=== PATIENT | male | born 1985 | race African-American/Black ===

== ENCOUNTER 2024-05-16 13:26 | Emergency (ER) | payer OTHER, MEDICAID, SELFPAY ==
[2024-05-16 13:27] VITALS: BP 127/88; PULSE 85; RESP 16; TEMP 36.6; O2SAT 95; BMI 21.8
--- NOTE | 2024-05-16 13:49 | EX.ED.UPPERE ---
HPI History of Present Illness HPI Narrative: 39-year-old male lacerated his left index finger at work today around 1 PM. Chief Complaint: Laceration Informant: patient Occured/Mechanism Mechanism/Context: Yes injury Onset/Context/Timing Onset: Today Context: Sudden Onset Timing: Continuous Current Severity: Mild Maximum Severity: Mild Narrative Narrative: 39-year-old male [id number] left index finger laceration at work today around 12:50 PM. Tetanus Immunization: Unknown Prior similar symptoms: No Recent Illness/Hospitalization: No PFSH PFSH Medical History no medical history no medical history Home Medications ?Medication ?Instructions ?Recorded ?Last Taken ?Type No Known/Unobtainable [No Known 08/24/13 Unknown History Home Medications] Allergy/AdvReac Type Severity Reaction Status Date / Time No Known Allergies Allergy Verified 05/16/24 13:29 Family History no significant family his no significant family history Surgical History no surgical history no surgical history Social History Smoking Status: Current every day smoker tobacco type: cigarettes ROS ROS ED ROS Narrative Denies recent illness. Constitutional Constitutional ED: Denies fever(s) Eyes Eyes: Denies blurry vision ENT ENT ED: Denies ear pain Cardiovascular Cardiovascular: Denies chest pain Respiratory/Chest Respiratory/Chest: Denies cough Gastrointestinal Gastrointestinal: Denies abdominal pain Genitourinary Genitourinary ED: Denies dysuria Musculoskeletal Musculoskeletal: Denies back pain Integumentary Denies abscess Neurologic Neurologic: Denies headache(s) Psychiatric Psychiatric: Denies anxiety Endocrine Endocrinology: Denies cold intolerance Hematologic/Lymphatic Hematologic/Lymphatic: Denies easy bleeding Allergic/Immunologic Allergic/Immunologic ED: Denies mouth swelling EXAM Physical Exam Narrative Exam Narrative: 39-year-old male no acute distress vital signs stable afebrile. H EENT exam unremarkable. Pierced tongue. Lungs clear. Heart regular rhythm. Abdomen soft nontender. Moving all 4 extremities. Neurovascularly intact. He has a dressing on his left index finger tells me is a laceration on the dorsal side along the PIP. Normal touch sensation and cap refill. Otherwise exam unremarkable. Const Vital Signs: 05/16/24 13:27 Temperature 97.9 F Temperature Source Oral Pulse Rate 85 Respiratory Rate 16 Blood Pressure 127/88 H Blood Pressure Mean 101 Pulse Ox 95 Oxygen Delivery Method Room Air Positive well nourished and well developed; Negative for obese, cachectic, contractures or unkempt General Appearance ED: well developed and NAD; Negative for unkempt, cachectic, contractures, cyanotic or diaphoretic Nutritional Appearance: Negative for cachectic or obese HEENT Reports moist mucous membranes normocephalic and atraumatic; Negative for trauma or tenderness Eyes PERRL and EOMs intact bilaterally General Eye ED: Negative for other Neck full ROM and supple General: Negative for tenderness Lymph Lymphatic: Negative for other Chest Wall inspection of chest normal and palpation of chest normal Chest: Negative for other Resp normal respiratory effort and clear to auscultation bilaterally Effort and Inspection: Negative for pain with movement Auscultation: Negative for rales, rhonchi or wheezes Cardio regular rate, regular rhythm, S1 normal heart sound, S2 normal heart sound and no murmurs GI non-tender, non-distended and no masses Back/Spine no CVA tenderness Extremity normal to inspection and full ROM Extremity Narrative: Laceration left index finger dorsal side along the PIP. Normal flexion extension. Normal touch sensation and cap refill. No foreign body noted or infection. Neuro oriented x3, CN's II-XII intact bilaterally, moves all extremities, no focal motor deficits and no sensory deficits noted Motor Exam: strength 5/5 throughout Psych mental status grossly normal Appearance: Negative for unkempt Mood & Affect: Negative for depressed, anxious or tearful Skin General Skin Exam: Negative for petechiae Lesions: no lesions Rashes: no rashes Trauma: laceration linear MDM MDM MDM Narrative Medical decision making narrative: 39-year-old male left index finger laceration at work. Worker's Comp. injury. Tetanus will be updated because he does not know his last tetanus. Anesthetic, clean, explore and repair. Left index finger flap laceration. Local anesthetic with plain lidocaine. Cleaned with Sylvia-Clara. Washed and irrigated with saline. Explored. No foreign body. Full range of motion. Normal sensation. Close using 3 simple erupted 4-0 Ethilon sutures. Proper hemostasis wound closure obtained. Patient was instructed on wound care and suture removal in 10 to 14 days. Tetanus was updated. Procedures Lacerations Left index finger laceration repair:: Length: 1 in Depth: Sub Q Shape: Flap Prep: Shmaritza-[place] Laceration repair: Irrigated, Lidocaine, Local and Skin sutures Number of Sutures/[place]: 3 Suture Information: Ethilon, Simple and 4-0 Comment: Left index finger laceration repair: Flap laceration on the dorsum of the left index finger over the PIP. Full flexion extension. No joint, nor tendon involvement. No foreign body. Local anesthetized lidocaine. Cleaned with Shur-Clens. Washed and irrigated with saline. Explored. Closed using 3 simple interrupted 4-0 Ethilon sutures. Proper hemostasis wound closure obtained. Patient tolerated procedure well. Was instructed on wound care. Discharge Plan Triage Chief Complaint: Laceration ED Provider: Branden Dominguez Dx/Rx/DC Orders Clinical Impression: Encounter related to worker's compensation claim, Finger laceration Prescriptions: No Action No Known Home Medications Primary Care Provider: Care Physician,No Primary Referrals: Corporate,Care [Group of Physicians] - 10-14 Days suture removal Care Physician,No Primary [Primary Care Provider] - Activity Restrictions/Additional Instructions: Keep your finger clean, dry and covered at work. Do not soak in any liquids. You may leave our dressing on for 2 to 3 days. Then change it. Clean daily with soap and water. Dry thoroughly. Apply antibiotic ointment. Watch for any signs of infection. Stitches out in 10 to 14 days. Return if any pus, fever, red streaks or swelling. Your tetanus shot was updated and is good for 10 years. Print Language: Czech Disposition Disposition: Home, Self Care
[2024-05-16] MEDS: Lidocaine 1% (20 ml mdv) 20 ML Vial 10 ML INFILT (14:10)
[2024-05-16] MEDS: Diphth,Pertuss(Acell),Tet Vac 0.5 ML Vial IM (15:34)
[2024-05-16 15:37] VITALS: BP 132/90; PULSE 78; RESP 16; TEMP 36.8; O2SAT 100
== END 2024-05-16 15:57 | disposition home or self-care (01) ==
PROVIDERS: Emergency Provider Emergency Medicine; Visit Provider Emergency Medicine
DX: S61.211A Laceration without foreign body of left index finger without damage to nail, initial encounter (principal); F17.210 Nicotine dependence, cigarettes, uncomplicated; Z23 Encounter for immunization; W26.8XXA Contact with other sharp object(s), not elsewhere classified, initial encounter; Y99.0 Civilian activity done for income or pay; Y92.89 Other specified places as the place of occurrence of the external cause
CPT/HCPCS: 12001; 90471; 90715; 99284

== ENCOUNTER 2024-11-04 13:42 | Emergency (ER) | payer MEDICAID, SELFPAY ==
[2024-11-04 13:43] VITALS: BP 140/83; PULSE 89; RESP 18; TEMP 37.2; O2SAT 100; BMI 21.1
--- NOTE | 2024-11-04 14:05 | EX.ED.VIS.HA ---
HPI <Dia Dickinson RN - Last Filed: 11/04/24 14:27> History of Present Illness Chief Complaint: Headache Informant: patient Onset/Context/Timing Onset: Weeks (1.5) Context: Sudden Timing: Continuous Quality -Headache: Positive for Sharp and Other (Aching); Negative for Similar Prior Headaches Location: Generalized headache Current Severity: 6/10 Maximum Severity: 10/10 Worsened by: Nothing Relieved by: Nothing Associated Symptoms/Injury Associated Symptoms: Positive for Nausea, Vomiting, Photophobia and - (Difficulty focusing); Negative for Fever, Sore Throat, Sinus Pressure, Numbness, Tingling or Preceding Aura Narrative Narrative: Patient is a 39-year-old male with no past medical history who presents to the ER for a headache that began 1-1/2 weeks ago. He was seen at urgent care on Wednesday and advised to come to the ED. Patient reports he developed a sharp pain in the left parietal area of his head that radiated to the top of his head and also had burning. After that he felt as if the left side of his face was draining and that something was turning in his head. Since then he has had just a generalized aching headache with pressure behind his eyes on 10/30/2024. He also reports intermittent photosensitivity, intermittent dizziness and lightheadedness, intermittent shortness of breath. He reports he did vomit on 10/26 10/31 and 10/31/2024. He was nauseated 2 days ago. He has taken Tylenol last week without relief. He denies one-sided weakness. He denies a prior history of migraines. He had a brother who does have a history of migraines. He does admit to having allergies to pollen and dust. He also reports decreased p.o. intake. He has a prior history of drug abuse. He did use a THC gummy on 10/29/2024. He does vape daily. He does not take any daily medications. However he reports he had taken estradiol and spironolactone last year and is supposed to restart this next month. He denies fever, chills, nasal congestion/drainage, sore throat, chest pain. Denies numbness tingling. Prior similar symptoms: No Recent Illness/Hospitalization: No PFSH <Dia Dickinson RN - Last Filed: 11/04/24 14:27> [facility] Medical History no medical history Home Medications ?Medication ?Instructions ?Recorded ?Last Taken ?Type No Known/Unobtainable [No Known 08/24/13 Unknown History Home Medications] Allergy/AdvReac Type Severity Reaction Status Date / Time No Known Allergies Allergy Verified 11/04/24 13:43 Family History no significant family his Surgical History no surgical history Social History Smoking Status: Current every day smoker tobacco type: e-cigarettes ROS <Dia Dickinson RN - Last Filed: 11/04/24 14:27> ROS ED ROS Narrative Patient reports dizziness and lightheadedness. Denies recent weight loss. Denies weakness. Constitutional Constitutional ED: Denies chills, fever(s) or weight loss Eyes Eyes: Reports blurry vision and other Details: Photophobia and difficulty focusing ENT ENT ED: Denies ear pain, rhinorrhea or sore throat Cardiovascular Cardiovascular: Denies chest pain, orthopnea or palpitations Respiratory/Chest Respiratory/Chest: Reports dyspnea and dyspnea on exertion; Denies cough or orthopnea Gastrointestinal Gastrointestinal: Reports nausea and vomiting; Denies abdominal pain, constipation or diarrhea Genitourinary Genitourinary ED: Denies dysuria, hematuria or urinary frequency Musculoskeletal Musculoskeletal: Denies arthralgias, back pain, myalgias or neck pain Integumentary Denies rash Neurologic Neurologic: Reports headache(s); Denies paresthesias or weakness Psychiatric Psychiatric: Denies anxiety or depression EXAM <Dia Dickinson RN - Last Filed: 11/04/24 14:27> Physical Exam Narrative Exam Narrative: Patient sitting at edge of ED cot, awake and alert, no acute distress. Patient is pleasant and cooperative. Vital signs stable. Const Vital Signs: 11/04/24 13:43 11/04/24 14:31 Temperature 98.9 F 98.9 F Temperature Source Oral Pulse Rate 89 89 Respiratory Rate 18 18 Blood Pressure 140/83 H 140/83 H Blood Pressure Mean 102 102 Pulse Ox 100 100 Oxygen Delivery Method Room Air Positive well nourished and well developed General Appearance ED: well developed and NAD HEENT Reports normocephalic and moist mucous membranes atraumatic Eyes PERRL Eyes Narrative: Nystagmus noted. Patient reports when feeling dizzy, he can closes eyes and symptoms briefly improved. Neck no lymphadenopathy, supple, no meningeal signs and no JVD Chest Wall Chest Narrative: No pain or crepitus with palpation. Resp normal respiratory effort and clear to auscultation bilaterally Auscultation: Negative for rales, rhonchi or wheezes Cardio regular rate, regular rhythm, S1 normal heart sound, S2 normal heart sound and no murmurs GI non-tender and non-distended Auscultation: normoactive bowel sounds Palpation: soft Extremity normal to inspection, full ROM and normal capillary refill General Extremety ED: Negative for edema or tenderness General Extremity: Negative for edema Neuro oriented x3, CN's II-XII intact bilaterally and no sensory deficits noted [place] Coma Scale: document GCS findings Spontaneous Obeys Commands Oriented 15 Sensorium / Orientation: awake and alert Speech: speech normal Gait (Neuro): normal gait Motor Exam: strength 5/5 throughout Psych mental status grossly normal Skin Skin Narrative: [employer], warm, dry <Dr. Branden Dominguez MD - Last Filed: 11/04/24 16:19> Physical Exam Const Vital Signs: 11/04/24 13:43 11/04/24 14:31 Temperature 98.9 F 98.9 F Temperature Source Oral Pulse Rate 89 89 Respiratory Rate 18 18 Blood Pressure 140/83 H 140/83 H Blood Pressure Mean 102 102 Pulse Ox 100 100 Oxygen Delivery Method Room Air Neuro Malvin Coma Scale: document GCS findings 15 MDM <Dia Dickinson RN - Last Filed: 11/04/24 14:27> [facility] Narrative Medical decision making narrative: Patient's exam is benign. Patient is agreeable to no further testing and to follow-up as an outpatient. Differential Diagnosis Differential Diagnosis: Migraine Differential Diagnosis: Intracranial hemorrhage Management Discussion w/another healthcare provider: Other (Dr. Dominguez, ED provider) Treatment and Re-Evaluation Narrative: Patient has a benign exam. He is agreeable with no further testing and workup. He will follow-up with his PCP. He has been instructed to return for worsening symptoms. He may take Tylenol or ibuprofen for pain. <Dr. Branden Dominguez MD - Last Filed: 11/04/24 16:19> [facility] Narrative Medical decision making narrative: Patient's exam is benign. Patient is agreeable to no further testing and to follow-up as an outpatient. I have personally performed a face to face assessment of the patient and have reviewed the FANY Note. I performed a substantive portion of the visit including all aspects of the following. My helton findings include: History is [39-year-old male transitioning to female. Complaining of atypical pain on his head but he said it is not a headache. It occurred about a week and a half ago. Has been intermittent. He denies any recent falls or trauma. Unknown family history because he is adopted. No history of headaches. No history of head or neck surgery. He denies any trouble while walking or speaking. No visual change. No numbness.] Exam is [well-appearing 39-year-old patient. Vital signs are stable afebrile. H EENT exam pupils round reactive light. Extra motions are intact. No facial droop. Normal speech. No trauma to his face or head. No reproducible pain. No rash. Neck nontender no meningismus. No lymphadenopathy. Able to flex and touch chin to chest. Lungs clear. Heart regular rhythm. Abdomen soft nontender. Moving all 4 extremities. 5 out of 5 tape coater strength. Dorsi plantarflexion intact. Fingertip to nose [id number] within normal limits. No drift. Neurologic exam normal. NIH 0. Patient stood up walked into the hallway and back without any difficulty. Negative Romberg.] Medical Decision Making [39-year-old with atypical facial and head pain is not reproducible. It is clinically not described as a headache. Patient has normal neurologic exam. Tylenol Motrin outpatient follow-up with his primary care provider. I do not think he needs any imaging at this time I do not think labs to be of any benefit.] Other additions or changes: [None] History & Record Review Discussion w/independent historian: Patient Discharge Plan Triage Chief Complaint: Headache ED Provider: Branden Dominguez Dx/Rx/DC Orders Clinical Impression: Headache, Dizziness, Nausea Instructions: ED Headache Unspecified Prescriptions: No Action No Known Home Medications Primary Care Provider: Care Physician,No Primary Referrals: Care Physician,No Primary [Primary Care Provider] - Activity Restrictions/Additional Instructions: Your exam is normal. You may take Tylenol or ibuprofen for pain. Please return to the ED for worsening headache or concerns. Follow-up with your primary care doctor in 3 to 5 days. Print Language: Indonesian Disposition Disposition: Home, Self Care Discharge Date/Time: 11/04/24 14:33
[2024-11-04 14:31] VITALS: BP 140/83; PULSE 89; RESP 18; TEMP 37.2; O2SAT 100
== END 2024-11-04 14:33 | disposition home or self-care (01) ==
PROVIDERS: Emergency Provider Emergency Medicine; Visit Provider Emergency Medicine
DX: R51.9 Headache, unspecified (principal); R11.2 Nausea with vomiting, unspecified; R42 Dizziness and giddiness; F17.290 Nicotine dependence, other tobacco product, uncomplicated
CPT/HCPCS: 99282